=== PATIENT | male | born 1995 | race African-American/Black ===

== ENCOUNTER 2025-02-10 15:40 | Emergency (ER) | payer SELFPAY ==
[~2025-02-10] VITALS: Ht 180.3 cm; Wt 75.8 kg
[2025-02-10 15:44] VITALS: BP 123/80; PULSE 82; RESP 20; TEMP 36.7; O2SAT 97; O2SAT 99
[2025-02-10] MEDS ORDERED: AMOX1TAB16 MT (17:33)
[2025-02-10] MEDS ORDERED: NAPR-681 MT (17:33)
== END 2025-02-10 17:56 | disposition home or self-care (01) ==
LOC: ER 15:40
DX: K04.7 Periapical abscess without sinus (principal); Z79.1 Long term (current) use of non-steroidal anti-inflammatories (NSAID)
CPT/HCPCS: 99283

== ENCOUNTER 2025-04-01 22:26 | Emergency (ER) | payer SELFPAY ==
[~2025-04-01] VITALS: Ht 188 cm; Wt 73.0 kg
[~2025-04-01 22:26] MED LIST: AMOX1TAB16 MT; NAPR-681 MT
[2025-04-01 22:38] VITALS: BP 130/82; PULSE 95; RESP 18; TEMP 37; O2SAT 100
== END 2025-04-02 01:00 | disposition left against medical advice (07) ==
LOC: ER 22:26
DX: R06.02 Shortness of breath (principal)
CPT/HCPCS: 71101; 99283